=== PATIENT | female | born 1985 | race Caucasian/White ===

== ENCOUNTER → 2018-04-28 | Outpatient (REF) | payer OTHER | LOC: M SFHCLERA 13:05 | DX: J02.9 Acute pharyngitis, unspecified (principal) ==

== ENCOUNTER 2018-11-12 19:46 | Emergency (ER) | payer OTHER ==
[~2018-11-12] VITALS: Ht 154.9 cm; Wt 95.5 kg
[2018-11-12 19:46] VITALS: BP 168/88
[2018-11-12] MEDS ORDERED: EFFE150C2 PO (20:02)
[2018-11-12] MEDS ORDERED: CLEO300C2 PO (20:28)
[2018-11-12] MEDS ORDERED: NORCO 5/325MG TABLET (BULK FOR ED) PO ONE (20:30)
[2018-11-12] MEDS ORDERED: CLINDAMYCIN 150 MG CAP PO ONE (20:30)
== END 2018-11-12 20:48 | disposition home or self-care (01) ==
LOC: M ED 19:46
DX: K02.9 Dental caries, unspecified (principal); K08.89 Other specified disorders of teeth and supporting structures; R68.84 Jaw pain; F41.9 Anxiety disorder, unspecified; Z88.0 Allergy status to penicillin; Z88.1 Allergy status to other antibiotic agents; Z88.2 Allergy status to sulfonamides; Z79.899 Other long term (current) drug therapy

== ENCOUNTER → 2019-06-23 | Outpatient (CLI) | payer OTHER ==
[~2019-06-23] MED LIST: CLEO300C2 PO; EFFE150C2 PO
--- NOTE | 2019-06-23 14:41 | REP ---
Left breast mammogram left breast ultrasound: The the patient is a 33-year-old female with two palpable lumps in the left breast upper outer quadrant. One has been present for over a year and the other has been present for approximate 2 months: The the patient has a Tyrer-Cuzick lifetime score of 28.0%. Left breast mammogram: MLO and CC views are performed without tone was symphysis. The breast parenchyma is heterogeneously dense. A cutaneous markers identify the locations of the palpable lumps in the upper outer quadrant. There is no dominant mass, micro calcific cluster, or architectural distortion that would indicate malignancy. Left breast ultrasound: Ultrasonography of the upper outer quadrant in the locations of the palpable lumps is performed. By ultrasound. There is nodular parenchyma. There is no nodule, mass or cyst. Impression: Negative left breast mammogram and left breast ultrasound. . BIRADS category 1 mammogram and ultrasound, negative, no evidence of malignancy. Recommendation: Routine annual follow-up screening mammography. BILATERAL SCREENING DIGITAL MAMMOGRAM WITH 3D TOMOSYNTHESIS: Recommendation: Routine annual screening mammography. Because of the increased breast density, annual adjunctive breast MRI in addition to screening mammography is recommended. These can be performed at alternating six month intervals. For women with a Tyrer-Cuzick score greater than 20 , adjunctive annual breast MRI in addition to screening mammography is recommended. These can be performed at alternating six month intervals. This mammogram was interpreted with the aid of a FDA approved computer-aided detection system. A. Negative mammogram reports should not delay biopsy if a dominant or clinically suspicious mass is present. B. Not all breast cancers are identified by mammography or tomosynthesis. C. Adenosis and dense breasts may obscure an underlying neoplasm. Patient letter M1 dense breasts. Electronically Signed by River Horn MD 06/23/2019 02:33 P
--- NOTE | 2019-06-23 14:41 | REP ---
Left breast ultrasound: Ultrasonography of the upper outer quadrant in the locations of the palpable lumps is performed. By ultrasound. There is nodular parenchyma. There is no nodule, mass or cyst. Electronically Signed by River Horn MD 06/23/2019 02:33 P
== END ==
LOC: M RAD 13:25
PROVIDERS: ATTEND Family Medicine
DX: N64.4 Mastodynia (principal)

== ENCOUNTER 2020-01-27 17:41 | Emergency (ER) | payer OTHER ==
[~2020-01-27] VITALS: Ht 154.9 cm; Wt 103.6 kg
--- NOTE | 2020-01-27 20:07 | REPVR ---
PROCEDURE INFORMATION: Exam: XR Right Foot Complete Exam date and time: 01/27/2020 6:19 PM Age: 34 years old Clinical indication: Injury or trauma; Fall; Initial encounter; Sprain or strain; Foot; Right; Additional info: Ttp S/P fall TECHNIQUE: Imaging protocol: XR Right foot. Views: 3 or more views. COMPARISON: CR Ankle, complete RIGHT 01/27/2020 6:14 PM FINDINGS: Bones/joints: Normal. Soft tissues: Normal. IMPRESSION: No acute findings. Electronically signed by: Jose Alas On 01/27/2020 20:07:10 PM
--- NOTE | 2020-01-27 20:08 | REPVR ---
PROCEDURE INFORMATION: Exam: XR Right Knee Exam date and time: 01/27/2020 7:59 PM Age: 34 years old Clinical indication: Injury or trauma; Fall; Initial encounter; Sprain or strain; Patella or knee; Right; Additional info: Ttp S/P fall TECHNIQUE: Imaging protocol: XR Right knee. Views: 4 or more views. COMPARISON: No relevant prior studies available. FINDINGS: Bones/joints: Normal. Soft tissues: Normal. IMPRESSION: No acute findings. Electronically signed by: Jose Alas On 01/27/2020 20:08:28 PM
--- NOTE | 2020-01-27 20:09 | REPVR ---
PROCEDURE INFORMATION: Exam: XR Right Ankle Exam date and time: 01/27/2020 5:51 PM Age: 34 years old Clinical indication: Injury or trauma; Fall; Initial encounter; Sprain or strain; Ankle; Right TECHNIQUE: Imaging protocol: XR Right ankle. Views: 3 or more views. COMPARISON: No relevant prior studies available. FINDINGS: Bones/joints: Normal. Soft tissues: Marked soft tissue swelling at the level of the lateral malleolus. IMPRESSION: 1. Marked soft tissue swelling at the level of the lateral malleolus. 2. No fracture. Electronically signed by: Jose Alas On 01/27/2020 20:09:11 PM
[2020-01-27 20:29] VITALS: BP 145/81
== END 2020-01-27 20:31 | disposition home or self-care (01) ==
LOC: M ED 17:41
DX: S80.01XA Contusion of right knee, initial encounter (principal); S93.401A Sprain of unspecified ligament of right ankle, initial encounter; X50.1XXA Overexertion from prolonged static or awkward postures, initial encounter; Y92.828 Other wilderness area as the place of occurrence of the external cause; F41.9 Anxiety disorder, unspecified; Z88.0 Allergy status to penicillin; Z88.2 Allergy status to sulfonamides